=== PATIENT | female | born 1945 | race Caucasian/White ===

== ENCOUNTER 2018-09-25 07:21 | Emergency (ER) | payer MEDICARE, BC ==
[2018-09-25] MEDS ORDERED: Ondansetron 4 MG/2 ML SDV IVPUSH ONE (07:51)
[2018-09-25] MEDS ORDERED: GI Cocktail Oral Solution 30 ML PO ONE (07:51)
--- NOTE | 2018-09-25 07:57 | EDM.PDOC ---
ED HPI GENERAL MEDICAL PROBLEM - General Chief Complaint: Cardiovascular Problem Stated Complaint: CHEST PAIN Time Seen by Provider: 09/25/18 07:47 Source of Information: Reports: Patient, Family History Limitations: Reports: No Limitations - History of Present Illness INITIAL COMMENTS - FREE TEXT/NARRATIVE: Patient presents via EMS with complaints of left sided chest and back pain. She states it starts on the left side of her chest and radiates to the back. It is largely respirophasic in nature with worsening pain on breathing. No retractions, not in respiratory distress. History of ovarian cancer with mets to the lungs and liver, no prior [place] or stroke. Denies smoking, alcohol, or drug use. Denies SOB, cough, febrility. Denies blood to urine or stools. Does state she has gone from having diarrhea, to more constipated. Had a BM this morning. Does endorse nausea at home. Medications that were put on hold by her PCP include, metformin, lipitor, mobic. To resume once she is feeling better with less nausea and eating regularly. Onset: Today Onset Date: 09/25/18 Onset Time: 06:15 Duration: Intermittent Location: Reports: Chest, Back Quality: Reports: Ache, Pressure Severity: Moderate Improves with: Reports: None Worsens with: Reports: Breathing Associated Symptoms: Reports: Chest Pain Left Chest Pain Score (Numeric/FACES): 5 - Related Data Allergies Allergy/AdvReac Type Severity Reaction Status Date / Time No Known Allergies Allergy Verified 06/22/16 08:26 Home Meds: Home Meds Calcium Carbonate/Vitamin D3 [Caltrate 600 + D Soft Chew Tab] 1 each PO DAILY [History] Dexamethasone 4 mg PO ASDIRECTED 03/26/18 [History] Ferrous Gluconate 324 mg PO Q2D 03/26/18 [History] Lisinopril 10 mg PO DAILY 03/26/18 [History] Loperamide [Imodium] 2 mg PO ASDIRECTED PRN 03/26/18 [History] Loratadine [Claritin] 10 mg PO DAILY 03/26/18 [History] Meloxicam [Mobic] 15 mg PO DAILY 03/26/18 [History] Multivitamin [Daily Multiple Vitamin] 1 tab PO DAILY 03/26/18 [History] Prochlorperazine Maleate [Compazine] 10 mg PO QID PRN 03/26/18 [History] atorvaSTATin [Lipitor] 10 mg PO ASDIRECTED 03/26/18 [History] metFORMIN [Glucophage XR] 250 mg PO BIDMEALS 03/26/18 [History] Past Medical History Cardiovascular History: Reports: Hypertension Musculoskeletal History: Reports: Back Pain, Chronic, Osteoarthritis Psychiatric History: Reports: Anxiety Endocrine/Metabolic History: Reports: Diabetes, Type II Hematologic History: Reports: Anemia, Other (See Below) Other Hematologic History: thrombocytopenia Oncologic (Cancer) History: Reports: Liver, Lung, Metastatic, Ovarian ED ROS GENERAL - Review of Systems Review Of Systems: See Below Constitutional: Reports: No Symptoms HEENT: Reports: No Symptoms Respiratory: Reports: Pleuritic Chest Pain Cardiovascular: Reports: Chest Pain Endocrine: Reports: No Symptoms GI/Abdominal: Reports: No Symptoms : Reports: No Symptoms Musculoskeletal: Reports: Back Pain Skin: Reports: No Symptoms Neurological: Reports: No Symptoms Psychiatric: Reports: No Symptoms Hematologic/Lymphatic: Reports: No Symptoms Immunologic: Reports: No Symptoms ED EXAM, GENERAL - Physical Exam Exam: See Below Exam Limited By: No Limitations General Appearance: Alert, WD/WN, No Apparent Distress Eye Exam: Bilateral Eye: EOMI, Normal Inspection, PERRL Ears: Normal TMs Ear Exam: Bilateral Ear: Auricle Normal, Canal Normal, TM normal Nose: Normal Inspection, Normal Mucosa, No Blood Throat/Mouth: Normal Inspection, Normal Lips, Normal Teeth, Normal Gums, Normal Oropharynx, Normal Voice, No Airway Compromise Head: Atraumatic, Normocephalic Neck: Normal Inspection, Supple, Non-Tender, Full Range of Motion Respiratory/Chest: No Respiratory Distress, Lungs Clear, Normal Breath Sounds, No Accessory Muscle Use, Chest Non-Tender Cardiovascular: Normal Peripheral Pulses, Regular Rate, Rhythm, No Edema, No Gallop, No JVD, No Murmur, No Rub Peripheral Pulses: 2+: Posterior Tibial (L), Posterior Tibial (R), Dorsalis Pedis (L), Dorsalis Pedis (R) GI/Abdominal: Normal Bowel Sounds, Soft, Non-Tender, No Abnormal Bruit Back Exam: Normal Inspection, Full Range of Motion, NT Extremities: Normal Inspection, Normal Range of Motion, Non-Tender, Normal Capillary Refill, No Pedal Edema Neurological: Alert, Oriented, CN II-XII Intact, Normal Cognition, Normal Gait, Normal Reflexes, No Motor/Sensory Deficits Psychiatric: Normal Affect, Normal Mood Skin Exam: Warm, Dry, Intact, Normal Color, No Rash Lymphatic: No Adenopathy Course - Vital Signs Last Recorded V/S: Last Vital Signs Temp 37.0 C 09/25/18 07:21 Pulse 92 09/25/18 07:21 Resp 18 09/25/18 07:21 BP 139/68 09/25/18 07:21 Pulse Ox 93 L 09/25/18 07:21 - Orders/Labs/Meds Orders: Active Orders 24 hr Category Date Time Status EKG Documentation Completion [RC] STAT Care 09/25/18 07:51 Active Sodium Chloride 0.9% [Normal Saline] 1,000 ml Med 09/25/18 09:00 Ordered IV ASDIRECTED Medication Orders Sodium Chloride (Normal Saline) 1,000 mls @ 999 mls/hr IV ASDIRECTED SONJA Last Admin: 09/25/18 08:58 Dose: 999 mls/hr Labs: Laboratory Tests 09/25/18 09/25/18 09/25/18 Range/Units 08:05 08:05 08:05 WBC 7.9 (4.0-10.0) x10^3/uL RBC 2.17 L (4.00-5.50) x10^6/uL Hgb 6.8 L* D (12.0-16.0) g/dL Hct 22.4 L (33.0-47.0) % MCV 103.2 H D (78.0-93.0) fL MCH 31.3 (26.0-32.0) pg MCHC 30.4 L (32.0-36.0) g/dL RDW Coeff of Corin 18.5 H (10.0-15.0) % Plt Count 198 (130-400) x10^3/uL Add Manual Diff Yes Neutrophils % (Manual) 82 H (50-80) % Band Neutrophils % 3 (0-6) % Lymphocytes % (Manual) 15 L (25-50) % Platelet Estimate Adequate Hypochromasia 2+ moderate H Anisocytosis 2+ moderate H Macrocytosis 3+ marked H Target Cells 1+ slight H Tear Drop Cells 1+ slight H PT 11.2 (10.0-12.8) SEC INR 1.0 L (2.0-3.5) Sodium 135 L (136-145) mmol/L Potassium 4.5 (3.5-5.1) mmol/L Chloride 98 (98-107) mmol/L Carbon Dioxide 27 (21-32) mmol/L Anion Gap 14.5 (10-20) mmol/L BUN 19 H (7-18) mg/dL Creatinine 0.8 (0.55-1.02) mg/dL Est Cr Clr Drug Dosing TNP Estimated GFR (MDRD) > 60 Glucose 104 (74-106) mg/dL Lactic Acid (0.4-2.0) mmol/L Calcium 8.7 (8.5-10.1) mg/dL Corrected Calcium 10.06 (8.5-10.1) mg/dL Magnesium 1.5 L (1.8-2.4) mg/dL Total Bilirubin 0.5 (0.2-1.0) mg/dL AST 79 H (15-37) U/L ALT 20 (14-59) U/L Alkaline Phosphatase 609 H (46-116) U/L Troponin I < 0.017 (<=0.056) ng/mL NT-Pro-B Natriuret Pep 373 H (<=125) pg/mL Total Protein 6.1 L (6.4-8.2) g/dL Albumin 2.3 L (3.4-5.0) g/dL Globulin 3.8 Albumin/Globulin Ratio 0.61 Amylase 23 L (25-115) U/L Lipase 44 L (73-393) U/L Urine Color (YELLOW) Urine Appearance (CLEAR) Urine pH (5.0-8.0) Ur Specific [place] Urine Protein (NEGATIVE) mg/dL Urine Glucose (UA) (NEGATIVE) mg/dL Urine Ketones (NEGATIVE) mg/dL Urine Occult Blood (NEGATIVE) Urine Nitrite (NEGATIVE) Urine Bilirubin (NEGATIVE) Urine Urobilinogen (0.2) EU/dL Ur Leukocyte Esterase (NEGATIVE) Urine RBC (NOT SEEN) /HPF Urine WBC (NOT SEEN) /HPF Ur Squamous Epith Cells (NEGATIVE) /HPF Urine Bacteria (NEGATIVE) /HPF Urine Mucus (NEGATIVE) /LPF 09/25/18 09/25/18 Range/Units 08:05 08:45 WBC (4.0-10.0) x10^3/uL RBC (4.00-5.50) x10^6/uL Hgb (12.0-16.0) g/dL Hct (33.0-47.0) % MCV (78.0-93.0) fL MCH (26.0-32.0) pg MCHC (32.0-36.0) g/dL RDW Coeff of Corin (10.0-15.0) % Plt Count (130-400) x10^3/uL Add Manual Diff Neutrophils % (Manual) (50-80) % Band Neutrophils % (0-6) % Lymphocytes % (Manual) (25-50) % Platelet Estimate Hypochromasia Anisocytosis Macrocytosis Target Cells Tear Drop Cells PT (10.0-12.8) SEC INR (2.0-3.5) Sodium (136-145) mmol/L Potassium (3.5-5.1) mmol/L Chloride (98-107) mmol/L Carbon Dioxide (21-32) mmol/L Anion Gap (10-20) mmol/L BUN (7-18) mg/dL Creatinine (0.55-1.02) mg/dL Est Cr Clr Drug Dosing Estimated GFR (MDRD) Glucose (74-106) mg/dL Lactic Acid 1.3 (0.4-2.0) mmol/L Calcium (8.5-10.1) mg/dL Corrected Calcium (8.5-10.1) mg/dL Magnesium (1.8-2.4) mg/dL Total Bilirubin (0.2-1.0) mg/dL AST (15-37) U/L ALT (14-59) U/L Alkaline Phosphatase (46-116) U/L Troponin I (<=0.056) ng/mL NT-Pro-B Natriuret Pep (<=125) pg/mL Total Protein (6.4-8.2) g/dL Albumin (3.4-5.0) g/dL Globulin Albumin/Globulin Ratio Amylase (25-115) U/L Lipase (73-393) U/L Urine Color Yellow (YELLOW) Urine Appearance Clear (CLEAR) Urine pH 6.0 (5.0-8.0) Ur Specific [place] 1.020 Urine Protein Trace H (NEGATIVE) mg/dL Urine Glucose (UA) Negative (NEGATIVE) mg/dL Urine Ketones Negative (NEGATIVE) mg/dL Urine Occult Blood Negative (NEGATIVE) Urine Nitrite Negative (NEGATIVE) Urine Bilirubin Negative (NEGATIVE) Urine Urobilinogen 0.2 (0.2) EU/dL Ur Leukocyte Esterase Negative (NEGATIVE) Urine RBC 0-5 (NOT SEEN) /HPF Urine WBC 0-5 (NOT SEEN) /HPF Ur Squamous Epith Cells Rare (NEGATIVE) /HPF Urine Bacteria Not seen (NEGATIVE) /HPF Urine Mucus Rare H (NEGATIVE) /LPF Meds: Medications Generic Name Dose Route Start Last Admin Trade Name Freq PRN Reason Stop Dose Admin Sodium Chloride 1,000 mls @ 999 mls/hr 09/25/18 09:00 09/25/18 08:58 Normal Saline IV 999 mls/hr ASDIRECTED SONJA Administration Discontinued Medications Generic Name Dose Route Start Last Admin Trade Name Freq PRN Reason Stop Dose Admin Al Hydroxide/Mg Hydroxide 30 ml 09/25/18 07:51 09/25/18 08:08 Gi Cocktail PO 09/25/18 07:52 30 ml ONETIME ONE Administration Iopamidol 100 ml 09/25/18 08:16 09/25/18 08:39 Isovue-300 (61%) IVPUSH 09/25/18 08:17 100 ml ONETIME ONE Administration Ondansetron HCl 4 mg 09/25/18 07:51 09/25/18 08:08 Zofran IVPUSH 09/25/18 07:52 4 mg ONETIME ONE Administration - Radiology Interpretation Free Text/Narrative:: CT negative for any PE, did note however a small left pleural effusion, bilateral pulmonary nodules and masses have enlarged Departure - Departure Time of Disposition: 10:16 Disposition: Home, Self-Care 01 Condition: Fair Clinical Impression: Pleural effusion on left Instructions: Pleural Effusion Referrals: Aubree Zamudio MD [Primary Care Provider] - Forms: ED Department Discharge Additional Instructions: Plan 1. Increase your magnesium tablet to two per day and have levels redrawn with primary care 2. You have a small left sided pleural effusion. These can resolve on their own or may require draining. If you become increasingly short of breath, have difficulty breathing, or increased chest pain this may require a surgical procedure called a thoracentesis to drain the fluid. Come into the ER if this happens. 3. Stay well hydrated and try to eat as best you can. 4. Per Dr. Zamudio, restart your held medications when you are eating and drinking as you usually do. 5. Please contact us if you have any further questions or concerns. ED Communication - ED Communication Date/Time Date: 09/25/18 Time Called: 10:11 - Discussed Case With (1) Discussed Case With (1): Other (discussed case with her oncologist Dr. Saini. He does recommend no Chemo tomorrow and to have labs redrawn next week) - Problem List & Annotations (1) Pleural effusion on left SNOMED Code(s): 71809393 Code(s): J90 - PLEURAL EFFUSION, NOT ELSEWHERE CLASSIFIED Status: Acute Priority: Medium Current Visit: Yes - Problem List Review Problem List Initiated/Reviewed/Updated: Yes - My Orders Last 24 Hours: My Active Orders 09/25/18 07:51 EKG Documentation Completion [RC] STAT 09/25/18 09:00 Sodium Chloride 0.9% [Normal Saline] 1,000 ml IV ASDIRECTED - Assessment/Plan Last 24 Hours: My Active Orders 09/25/18 07:51 EKG Documentation Completion [RC] STAT 09/25/18 09:00 Sodium Chloride 0.9% [Normal Saline] 1,000 ml IV ASDIRECTED Assessment:: left pleural effusion Plan: Plan 1. Increase your magnesium tablet to two per day and have levels redrawn with primary care 2. You have a small left sided pleural effusion. These can resolve on their own or may require draining. If you become increasingly short of breath, have difficulty breathing, or increased chest pain this may require a surgical procedure called a thoracentesis to drain the fluid. Come into the ER if this happens. 3. Stay well hydrated and try to eat as best you can. 4. Per Dr. Zamudio, restart your held medications when you are eating and drinking as you usually do. 5. Please contact us if you have any further questions or concerns.
[2018-09-25] MEDS ORDERED: Iopamidol 612 MG/ML 100 ML Bottle IVPUSH ONE (08:16)
[2018-09-25 08:44] LABS: CHLORIDE,CL 98 mmol/L (98-107); SODIUM,NA 135 mmol/L (136-145)
[2018-09-25 08:45] LABS: ANION GAP 14.5 mmol/L (10-20)
[2018-09-25 08:49] VITALS: BP 139/68
[2018-09-25] MEDS ORDERED: Sodium Chloride 0.9% 1,000 ML IV SCH (09:00)
--- NOTE | 2018-09-25 09:43 | CT ---
[id number] CT/CTA Chest EXAM: CT ANGIOGRAM CHEST INDICATION: Chest pressure and coagulopathy.. COMPARISON: August 11, 2017. DISCUSSION: The pulmonary arteries are normal in appearance with no emboli identified. Innumerable bilateral pulmonary masses/nodules have increased in size. For instance, a 2.7 cm left upper lobe nodule previously measured 2.4 cm, a 3.1 cm left lower lobe nodule previously measured 3 cm and a 3 cm right lower lobe nodule previously measured 2.7 cm. There is a small left effusion. No right-sided effusion or pericardial fluid. The heart is borderline enlarged. There is mild ectasia of the ascending aorta which measures up to 3.6 cm. A right internal jugular introduced port is in stable satisfactory position tip at the cavoatrial junction. No mediastinal, hilar or axillary adenopathy. There are multiple liver metastases which are likely increased in size, but poorly defined on this arterial phase imaging. Stable mild thickening of the left adrenal gland. The osseous structures are unremarkable. IMPRESSION: 1. Negative for pulmonary embolism. 2. Innumerable bilateral pulmonary nodules and masses have increased in size. 3. Development of a small left pleural effusion. Negrito Abel MD 09/25/18 0940 Thank you for allowing us to participate in the care of your patient.
== END 2018-09-25 10:25 | disposition home or self-care (01) ==
LOC: VM.ED 07:21
DX: J90 Pleural effusion, not elsewhere classified (principal); I10 Essential (primary) hypertension; E11.9 Type 2 diabetes mellitus without complications; Z79.899 Other long term (current) drug therapy; Z79.84 Long term (current) use of oral hypoglycemic drugs
CPT/HCPCS: 36415; 71275; 80053; 81001; 82150; 83605; 83690; 83735; 83880; 84484; 85025; 85610; 93005; 96361; 96374; 99285; A9270; J2405; J7030; Q9967